=== PATIENT | female | born 1965 | race Caucasian/White ===

== ENCOUNTER → 2020-02-05 | Outpatient (CLI) | payer BC ==
--- NOTE | 2020-02-05 08:54 | RAD ---
PA and lateral chest radiographs 02/05/2020 CLINICAL HISTORY: Positive PPD. PA and lateral digital radiographs of the chest were obtained. No previous studies are available for comparison. The cardiac and mediastinal silhouettes are within normal limits in size and configuration. A linear band of probable scarring is seen involving the left lower lobe. No acute pulmonary infiltrate is seen. No pneumothorax or pleural effusion is noted. Small calcified granulomas are seen involving both lungs. Degenerative changes are seen involving the thoracic spine. IMPRESSION: No acute abnormality is seen. Electronically signed by: Jr Amaro MD (02/05/2020 8:51 AM) [facility] [place]
== END | disposition home or self-care (01) ==
LOC: DXRAD 07:48
PROVIDERS: ATTEND Specialist
DX: J98.4 Other disorders of lung (principal); J84.10 Pulmonary fibrosis, unspecified; M47.814 Spondylosis without myelopathy or radiculopathy, thoracic region
CPT/HCPCS: 71046

== ENCOUNTER 2020-06-18 07:47 | Emergency (ER) | payer BC ==
[~2020-06-18] VITALS: Ht 165.1 cm; Wt 71.0 kg
[2020-06-18 07:52] VITALS: BP 158/98
[2020-06-18] MEDS ORDERED: PANT40TA3 PO (08:14)
[2020-06-18] MEDS ORDERED: LIDO:MAALOX 1:1 20 ML SINGLE DOSE. PO ONE (08:15)
--- NOTE | 2020-06-18 08:15 | PHYS DOC ---
Past History Past Medical History: COPD, TB Past Surgical History: Cholecystectomy, Tubal ligation Alcohol Use: None General Adult EDM: Chief Complaint: ABDOMINAL PAIN HPI: HPI: Patient is a 55-year-old female who is been on treatment for latent tuberculosis since May 17. She states over the last several days she has had a burning pain in her epigastric area that radiates to her right side. She denies any chest pain shortness of breath. She denies any sour taste in her mouth. She states she has had ulcers in the past and this feels similar. She denies any melena or hematemesis. She denies any dysuria or gross hematuria. She states she has been coughing but she is a smoker and this has not changed. She states she had a couple pieces of pizza last night and this did not make the pain any better or worse.] Review of Systems: Review of Systems: Constitutional: Denies fever or chills Eyes: Denies change in visual acuity HENT: Denies nasal congestion or sore throat Respiratory: Denies cough or shortness of breath Cardiovascular: Denies chest pain or edema GI: Per HPI : Denies dysuria Musculoskeletal: Denies back pain or joint pain Integument: Denies rash Neurologic: Denies headache, focal weakness or sensory changes Endocrine: Denies polyuria or polydipsia Lymphatic: Denies swollen glands Psychiatric: Denies depression or anxiety Heart Score: Risk Factors: Risk Factors: DM, Current or recent (<one month) smoker, HTN, HLP, family history of CAD, obesity. Risk Scores: Score 0 - 3: 2.5% MACE over next 6 weeks - Discharge Home Score 4 - 6: 20.3% MACE over next 6 weeks - Admit for Clinical Observation Score 7 - 10: 72.7% MACE over next 6 weeks - Early Invasive Strategies Current Medications: Current Meds: Current Medications Medications (Trade) Dose Ordered Sig/Jorge Start Time Stop Time Status Last Admin Dose Admin Multi-Ingredient Mouthwash/Gargle (Gi Cocktail) 20 ml 1X ONCE 06/18/20 08:15 06/18/20 08:16 UNV Allergies: Allergies: Allergies Coded Allergies Type Severity Reaction Last Updated Verified No Known Drug Allergies 06/18/20 No Physical Exam: PE: Constitutional: Well developed, well nourished, no acute distress, non-toxic appearance. [] HENT: Normocephalic, atraumatic, bilateral external ears normal, oropharynx moist, no oral exudates, nose normal. [] Eyes: PERRLA, EOMI, conjunctiva normal, no discharge. [] Neck: Normal range of motion, no tenderness, supple, no stridor. [] Cardiovascular:Heart rate regular rhythm, no murmur [] Lungs & Thorax: Bilateral breath sounds clear to auscultation [] Abdomen: Bowel sounds normal, soft, no tenderness, no masses, no pulsatile masses. [] Skin: Warm, dry, no erythema, no rash. [] Back: No tenderness, no CVA tenderness. [] Extremities: No tenderness, no cyanosis, no clubbing, ROM intact, no edema. [] Neurologic: Alert and oriented X 3, normal motor function, normal sensory function, no focal deficits noted. [] Psychologic: Affect normal, judgement normal, mood normal. [] Current Patient Data: Vital Signs: Vital Signs Date Time Temp Pulse Resp B/P (MAP) Pulse Ox O2 Delivery O2 Flow Rate FiO2 06/18/20 07:52 97.6 114 16 158/98 (118) 97 Room Air EKG: EKG: [] Radiology/Procedures: Radiology/Procedures: [] Course & Med Decision Making: Course & Med Decision Making Pertinent Labs and Imaging studies reviewed. (See chart for details) [ED course: Evaluation reveals a 55-year-old female with likely gastritis. Patient states she does not want any work-up done at this time she just wanted some medicine to see if we could help her symptoms. I believe her complaints are pretty straightforward I do not believe they are cardiac in nature therefore I will give her a GI cocktail and a proton pump inhibitor to take to see if this makes a difference over the course the next couple of weeks] Chalino Disclaimer: Chalino Disclaimer: This electronic medical record was generated, in whole or in part, using a voice recognition dictation system. Departure Departure: Impression: Primary Impression: Epigastric pain Disposition: HOME/RESIDENCE PRIOR TO ADM Condition: STABLE Referrals: PCP,NO (PCP) Patient Instructions: Gastritis, Adult Additional Instructions: Return to the emergency department with any new or concerning symptoms Scripts Pantoprazole Sodium (PROTONIX) 40 Mg Tablet. 1 TAB PO DAILY for Gastritis, #30 TAB 5 Refills Prov: LILLY RINCON DO 06/18/20 Justification of Admission: Justification of Admission: Justification of Admission Dx: No LILLY RINCON DO Jun 18, 2020 08:15
== END 2020-06-18 08:24 | disposition home or self-care (01) ==
LOC: ER 07:47
DX: R10.13 Epigastric pain (principal); A15.9 Respiratory tuberculosis unspecified; J44.9 Chronic obstructive pulmonary disease, unspecified; Z90.49 Acquired absence of other specified parts of digestive tract; Z98.51 Tubal ligation status
CPT/HCPCS: 99283